=== PATIENT | female | born 1960 | race Caucasian/White ===

== ENCOUNTER 2016-12-10 15:11 | Inpatient (IN) | payer MEDICAID ==
[~2016-12-10] VITALS: Ht 152.4 cm; Wt 131.4 kg
[2016-12-10 16:54] LABS: BASOPHILS 0.1 % (0-2); EOSINOPHILS 0 % (0-7); HEMATOCRIT 43.3 % (36.0-48.0); HEMOGLOBIN 14.7 g/dL (12-16); IMMATURE GRANULOCYTES 0.4 % (0-5); LYMPHOCYTES 5.1 % (15-50); MCH 29.8 pg (26.0-34.0); MCHC 33.9 g/dL (31.0-37.0); MCV 87.8 fL (80.0-100.0); MEAN PLATELET VOLUME 10.4 fL (7.4-10.4); MONOCYTES 2.2 % (2-11); NEUTROPHILS 92.2 % (40-80); RBC 4.93 10x6/uL (4.00-5.40); RDW 15.1 % (11.5-14.5); WBC 18.7 10x3/uL (4.8-10.8)
[2016-12-10 16:55] LABS: PLATELET COUNT 236 10x3/uL (130-400)
[2016-12-10 17:12] LABS: ALBUMIN 3.5 g/dL (3.4-5.0); BILIRUBIN - TOTAL 0.75 mg/dL (0.2-1.3); CALCIUM 9.9 mg/dL (8.5-10.1); CARBON DIOXIDE 36.7 mmol/L (21.0-32.0); CREATININE - SERUM 1.4 mg/dL (0.6-1.3); PROTEIN - SERUM 8.3 g/dL (6.4-8.2)
[2016-12-10 17:19] LABS: ANION GAP 9.7 mmol/L (8-16); POTASSIUM - SERUM 2.4 mmol/L (3.5-5.1)
[2016-12-10 17:46] LABS: PRO BNP 5389 pg/mL (0-125)
[2016-12-10 18:01] LABS: APPEARANCE HAZY (CLEAR); BILIRUBIN NEGATIVE (NEGATIVE); COLOR YELLOW (YELLOW); GLUCOSE NEGATIVE (NEGATIVE); KETONE NEGATIVE (NEGATIVE); LEUKOCYTE ESTERASE 2+ (NEGATIVE); NITRITE POSITIVE (NEGATIVE); PROTEIN NEGATIVE (NEGATIVE); SPECIFIC GRAVITY 1.015 (1.005-1.020); UROBILINOGEN NORMAL (NORMAL)
[2016-12-10 18:02] LABS: BACTERIA MANY /hpf (NONE SEEN); EPITHELIAL CELLS 0-5 /hpf (0-5); WHITE CELLS - URINE >50 /hpf (0-5)
[2016-12-10 18:08] LABS: KETONE - SERUM NEGATIVE (NEGATIVE)
[2016-12-10 19:00] VITALS: BP 154/76
[2016-12-10] MEDS ORDERED: PLAVIX75 MG PO (20:49)
[2016-12-10] MEDS ORDERED: HYDROCODONE-APA1 TAB PO (20:49)
[2016-12-10] MEDS ORDERED: MAG-OX 400 MG400 MG PO (20:50)
[2016-12-10] MEDS ORDERED: NORTRIPTYLINE H50 MG PO (20:50)
[2016-12-10] MEDS ORDERED: CATAPRES0.2 MG PO (20:50)
[2016-12-10] MEDS ORDERED: ALDACTONE25 MG PO (20:51)
[2016-12-10] MEDS ORDERED: METOLAZONE5 MG PO (20:51)
[2016-12-10] MEDS ORDERED: SYNTHROID300 MCG PO (20:51)
[2016-12-10] MEDS ORDERED: POTASSIUM CHLORIDE (20:52)
[2016-12-10] MEDS ORDERED: ISOSORBIDE MONO20 MG PO (20:52)
[2016-12-10] MEDS ORDERED: [UNRECOGNIZED DRUG - OTHER] (20:52)
[2016-12-10] MEDS ORDERED: BUMEX2 MG PO (20:52)
[2016-12-10] MEDS ORDERED: HUMULIN R100 U/ML SC (20:53)
[2016-12-10] MEDS ORDERED: HUMULIN N100 U/ML SC ×2 (20:54)
[2016-12-10] MEDS ORDERED: NORVASC5 MG PO (20:55)
--- NOTE | 2016-12-10 22:28 | NUR ---
PT RECEIVED TO FLOOR @ APPROX 20:30-20:45 VIA STRETCHER FROM ER. PT DEMONSTRATES EXTREME WEAKNESS AND LETHARGY, BUT IS ALERT AND ORIENTED AT THIS TIME. FAMILY BROUGHT PT FROM [place], C/O INCREASED CONFUSION, WEAKNESS, AND LLE REDNESS, PAIN, AND POSSIBLY INFECTED. PT DID EAT HALF A TURKEY SANDWICH IN THE ER, BUT FAMILY STATES PT HAS NOT ACTUALLY EATEN IN THE LAST 1 1/2-2 DAYS. PT TRANSFERRED FROM STRETCHER TO BED X 5 ASSIST. MEDS HAVE BEEN REVIEWED WITH FAMILY, WILL MONITOR CLOSELY.
--- NOTE | 2016-12-11 01:47 | NUR ---
PT LYING IN BED, EYES CLOSED, RESPIRATIONS EVEN AND UNLABORED. PT ROUSABLE TO VERBAL STIMULI, FAMILY AT BEDSIDE. CONTINUE TO MONITOR CLOSELY.
[2016-12-11 03:32] VITALS: BP 151/76; BMI 65.9
[2016-12-11 04:00] VITALS: BP 156/70
--- NOTE | 2016-12-11 05:24 | NUR ---
PT BATHED, LINENS CHANGED, GOWN CHANGED, TOTAL ASSIST AT THIS TIME. PT IS WANTING TO DANGLE HER LEGS FOR PAIN RELIEF. I DID TEACHING TO PT AND THAT DANGLING OR STAYING IN THE DEPENDENT POSITION CAUSES INCREASED SWELLING, HAVE ENCOURAGED PT TO REMAIN IN BED WITH LEGS AND FEET ELEVATED. CONTINUE TO MONITOR CLOSELY.
[2016-12-11 06:45] LABS: BASOPHILS 0.1 % (0-2); EOSINOPHILS 0 % (0-7); HEMATOCRIT 36.3 % (36.0-48.0); HEMOGLOBIN 12.2 g/dL (12-16); IMMATURE GRANULOCYTES 0.3 % (0-5); LYMPHOCYTES 9.3 % (15-50); MCH 29.7 pg (26.0-34.0); MCHC 33.6 g/dL (31.0-37.0); MCV 88.3 fL (80.0-100.0); MEAN PLATELET VOLUME 10.3 fL (7.4-10.4); MONOCYTES 3.3 % (2-11); RBC 4.11 10x6/uL (4.00-5.40); RDW 15.1 % (11.5-14.5); WBC 15.7 10x3/uL (4.8-10.8)
[2016-12-11 06:47] LABS: PLATELET COUNT 187 10x3/uL (130-400)
[2016-12-11 06:55] LABS: ANION GAP 5.8 mmol/L (8-16); CALCIUM 8.9 mg/dL (8.5-10.1); CARBON DIOXIDE 36.8 mmol/L (21.0-32.0)
[2016-12-11 06:59] LABS: POTASSIUM - SERUM 2.6 mmol/L (3.5-5.1)
[2016-12-11 08:00] VITALS: BP 163/77
--- NOTE | 2016-12-11 08:09 | NUR ---
AM ROUNDING DONE WITH LEFT LOWER LEG SEEN VERY RED, SWOLLEN AND SOME HEALING SCABS SEEN. RIGHT LEG UNDERNEATH COVERS, WILL CHECK THIS WITH FULL ASSESSMENT. MALE MEMBER AT [facility]. ON HEART MONITOR SHOWING SR, HR 86. ON 2L PER NC. RIGHT AC SEEN WITH NS W 20K INFUSING AT 75 CC/HR.
--- NOTE | 2016-12-11 11:20 | NUR ---
PLACED IN TEMPORARY CONTACT ISOLATION TO R/O STAPH TO LEG. THIS IS EXPLAINED TO PATIENT.
[2016-12-11 12:00] VITALS: BP 146/74
--- NOTE | 2016-12-11 15:02 | NUR ---
PER DR KIM FOR ME TO CALL TO CLARIFY INSULIN DOSE AT HOME. I CALLED CAIN AT [phone] AND HE STATES THAT HE GIVES HER: 220 U OF NOVOLIN EVERY MORNING 110 U OF NOVOLIN AT BEDTIME 25 U OF HUMULIN R BEFORE EACH MEAL. I REPEATED THIS TO HIM SEVERAL TIMES BACK AND HE STATES THAT THIS IS CORRECT.
[2016-12-11 15:03] VITALS: Ht 152.4 cm; Wt 131.4 kg
--- NOTE | 2016-12-11 15:13 | NUR ---
PATIENT HAD AN INCONT. EPISODE OF URINE AND THEN USED THE BEDPAN PAST CLEANING HER UP.
[2016-12-11 16:00] VITALS: BP 162/77
--- NOTE | 2016-12-11 17:35 | NUR ---
ASSISTED X 2 BACK TO BED. US DOPPLE OF LEG DONE.
[2016-12-11 20:00] VITALS: BP 141/91
[2016-12-12 04:00] VITALS: BP 144/78
--- NOTE | 2016-12-12 07:35 | NUR ---
AM ROUNDING DONE WITH PATIENT UP IN CHAIR THIS AM. MALE MEBER AT BEDSIDE. ON 2L PER NC. RIGHT AC SEEN WITH NS INFUSING AT 10 CC/HR. ON HEART MONITOR SHOWING SR, HR 83. LEFT LOWER LEG STILL VERY RED WITH BLACK SCAB SEEN TO FULLER AREA. IN CONTACT ISLOLATION. WILL ASSESS FOLDS AND BUTTOCK WHEN OUT OF CHAIR.
[2016-12-12 08:09] VITALS: BP 122/70
[2016-12-12 10:42] LABS: ANION GAP 5.4 mmol/L (8-16); CALCIUM 9.1 mg/dL (8.5-10.1); CARBON DIOXIDE 36.3 mmol/L (21.0-32.0); CREATININE - SERUM 1.1 mg/dL (0.6-1.3)
[2016-12-12 10:43] LABS: POTASSIUM - SERUM 2.7 mmol/L (3.5-5.1)
--- NOTE | 2016-12-12 10:49 | NUR ---
LAB TO CALL WITH CRITICAL POTASSIUM OF 2.7. PAGE INTO CASH WITH RENAL FOR NEW ORDERS.
--- NOTE | 2016-12-12 10:52 | NUR ---
JOSE CAROLINA RECEVIED FROM CASH WITH RENAL.
[2016-12-12 12:00] VITALS: BP 143/70
--- NOTE | 2016-12-12 16:59 | NUR ---
PATIENT STILL IN CHAIR. 16 U OF INSULIN GIVEN TO RIGHT ARM FOR BLOOD SUGAR OF 266. CLEANED UP FROM INCONT. OF URINE, CALMOSEPTINE APPLIED TO BUTTOCK. CALL LIGHT IN USE.
--- NOTE | 2016-12-12 19:47 | NUR ---
RECEIVED REPORT, WILL ASSUME CARE OF PT, PT SITTING IN CHAIR, DENIES ANY NEEDS, CALL LIGHT IN REACH, WILL CONTINUE TO MONITOR
[2016-12-12 20:00] VITALS: BP 133/64
--- NOTE | 2016-12-12 20:42 | NUR ---
BLOODSUGAR 129-NO COVERAGE PER SCALE
[2016-12-13 04:00] VITALS: BP 140/55
--- NOTE | 2016-12-13 04:09 | NUR ---
ASSESSMENT COMPLETE, SEE FLOESHEET, PT SLEEPING IN CHAIR, CALL LIGHT IN REACH, WILL CONTINUE PLAN OF CARE
[2016-12-13 04:56] LABS: BASOPHILS 0.2 % (0-2); EOSINOPHILS 0.8 % (0-7); HEMOGLOBIN 12.5 g/dL (12-16); IMMATURE GRANULOCYTES 0.5 % (0-5); LYMPHOCYTES 18.2 % (15-50); MCH 29.6 pg (26.0-34.0); MCHC 32.9 g/dL (31.0-37.0); MEAN PLATELET VOLUME 10.1 fL (7.4-10.4); MONOCYTES 5.5 % (2-11); NEUTROPHILS 74.8 % (40-80); RBC 4.22 10x6/uL (4.00-5.40); RDW 14.9 % (11.5-14.5); WBC 16.9 10x3/uL (4.8-10.8)
[2016-12-13 05:00] LABS: PLATELET COUNT 238 10x3/uL (130-400)
[2016-12-13 05:14] LABS: ANION GAP 9.9 mmol/L (8-16); CALCIUM 9.6 mg/dL (8.5-10.1); CARBON DIOXIDE 38.2 mmol/L (21.0-32.0); CREATININE - SERUM 1.2 mg/dL (0.6-1.3); POTASSIUM - SERUM 3.1 mmol/L (3.5-5.1)
--- NOTE | 2016-12-13 07:45 | NUR ---
INTRODUCED MYSELF TO PT PRIMARY RN FOR TODAYS SHIFT. PT RESTING QUIETLY IN BED WATCHING TV AND DENIES ANY CURRENT NEEDS AT THIS TIME. CL IN REACH. WILL CPOC.
[2016-12-13 08:40] VITALS: BP 149/65
--- NOTE | 2016-12-13 09:30 | NUR ---
MORNING MEDICATIONS PASSED AND PT SWALLOWED ALL HER MEDICATIONS WITHOUT ANY DIFFICULTIES. SHIFT ASSESSMENT COMPLETED. PT RESPONDS SLOWLY AND OFTEN STATES "I JUST DONT REMEMBER" HOWEVER PT IS ORIENTED TO PERSON, PLACE AND SITUATION. PT NEEDS AN IV AND WILL HAVE ONE PLACED SHORTLY. TELEMETRY IN PLACE AND RUNNING NORMAL SINUS. RR NONLABORED WITH NC @2L IN PLACE. RR SHALLOW. PTS ABDOMEN IS DISTENDED BUT SHE STATES ITS NORMAL FOR HER. BS ACTIVE X4. PT NEEDS A TEMPLE PLACED TEACHING PROVIDED AND PT DENIES ANY QUESTIONS. 16FR TEMPLE PLACED USING STERILE TECHNIQUE AND SECURED WITH STAT LOCK TO L.INNER THIGH DRAINING CLEAR YELLOW URINE TO GRAVITY BAG OFF L.SIDE OF BED. PTS L.LEG IS VERY SWOLLEN AND RED AND WARM TO THE TOUCH. ONE SCAB NOTED AND SKIN STILL INTACT. PERIPHERAL PULSE ARE PALP BUT WEAK. BILAT LEGS ARE DRY AND CRACKING SO I APPLIED LOTION TO BOTH. PT VOICED THANKS. PTS ABDOMINAL FOLDS AND GROIN FOLDS HOLD MOISTURE AND ARE RED. CLEANSED THOROUGHLY WITH SOAP AND WATER AND THEN DRIED. PT C/O OF IRRITATION/PAIN AT SITES BUT SKIN IS STILL INTACT. WILL PLACE PILLOW CASE AND TRY TO USE IT A BARRIER SO SHE CAN STAY DRY. PT DENIES ANY FURTHER NEEDS AT THIS TIME. CL IN REACH, BED IN LOWEST, SIDE RAILS X2 AND BUILT IN BED ALARM ON. WILL CPOC.
--- NOTE | 2016-12-13 10:45 | NUR ---
PROVIDED PT WITH HER ZOSYN INFUSING VIA L.HAND NEWLY PLACED PIV. DRSG CDI AND SWAB CAPS IN USE AND ALL TUBING NEW AND DATED/INITIALED. PT SITTING UP IN BED WITH FAMILY AT BEDSIDE RESTING QUIETLY. HELD PTS LOVENOX R/T CT SCAN SHOWING POSSIBLE ICH. NEURO HAS BEEN CONSULTED ALREADY. WILL CTM.
--- NOTE | 2016-12-13 11:15 | NUR ---
PT RESTING QUIELTY, FAMILY AT BEDSIDE. RR EVEN AND UNLABORED, PT DENIES NEEDS AT THIS TIME. BED IN LOWEST POSTION, CALL LIGHT IN REACH, WILL CTM.
--- NOTE | 2016-12-13 11:16 | NUR ---
FSBS 278. PT REC'D 16 UNITS PER SS INSULIN. PT SITTING UP IN BED WITH FAMILY AT BEDSIDE. CL IN REACH, BED IN LOWEST, SIDE RAILS X2. WILL CPOC.
--- NOTE | 2016-12-13 11:31 | NUR ---
BEDSIDE REPORT GIVEN TO RN ARUN FLANAGAN WHO WILL BE TAKING OVER CARE FOR THIS PT. PT RESTING AND DENIES ANY NEEDS AT THIS TIME.
[2016-12-13 12:39] VITALS: BP 150/71
--- NOTE | 2016-12-13 13:56 | NUR ---
Patient Name: BRIGIDA ROBBINS Admission Status: ER Accout number: [id number] Admission Date: 12-10-2016 : 1960 Admission Diagnosis: Attending: BRENNA Current LOS: 3 Anticipated DC Date: Planned Disposition: Home Health Service Primary Insurance: MEDICAID [place] Discharge Planning Comments: PATIENT MET WITH PATIENT (WHO IS CONFUSED), HER DAUGHTER ANTWON DIAZ, HER OTHER DAUGHTER REYNALDO KEENAN, AND HER SPOUSE CAIN ROBBINS. THEY STATED SHE WAS AT HOME, PRETTY MUCH INDEPENDENT WITH ADL'S, REQUIRING MINIMAL ASSISTANCE AT TIME. THEY WOULD LIKE FOR HER TO RETURN HOME WITH HER SPOUSE ON DISCHARGE. THEY FEEL THE HOME IS SAFE, BUT HAVE ASKED ABOUT HOME HEALTH. THEY STATED SHE HAS HAD THE HEALTH DEPARTMENT IN THE PAST,BUT DO NOT WANT TO USE THEM AGAIN. EXPLAINED I WOULD HAVE TO LOOK INTO THE CHOICES THEY HAVE IN THE [place] AREA. THE PATIENT HAS A ROLLING WALKER, BSC, AND CPAP MACHINE AT HOME. AT THIS TIME THEY ARE DENYING THE NEED FOR ANY ADDITIONAL EQUIPMENT. THE PATIENT DOES NOT WEAR OXYGEN AT HOME, BUT IS ON 3L N/C HERE. CM WILL MONITOR FOR NEED FOR WALK TEST PRIOR TO DISCHARGE. WILL CONTINUE TO FOLLOW AND ASSIST NEEDED. Beamer Operator: Lay Arce Is the patient Alert and Oriented? No * How many steps to enter\exit or inside your home? 0 * PCP DR WADE * Pharmacy [facility] * Preadmission Environment Home with Family * ADLs Independent * Equipment Bedside Commode CPAP Walker * List name and contact numbers for known caregivers / representatives who currently or will assist patient after discharge: CAIN ROBBINS, SPOUSE, REYNALDO DURANMARÍA, DTR, * Additional services required to return to the preadmission environment? Yes * Can the patient safely return to the preadmission environment? Yes * Has this patient been hospitalized within the prior 30 days at any hospital? No
[2016-12-13 16:51] VITALS: BP 153/63
[2016-12-13 19:00] VITALS: BP 154/66
--- NOTE | 2016-12-13 20:31 | NUR ---
PT LYING IN BED, AWAKE, ALERT, DEMONSTRATES WEAKNESS AND STUPOR. PT IS EASILY ROUSABLE TO VERBAL STIMULI, HOWEVER FALLS BACK TO SLEEP IMMEDIATELY AFTER BEING AWAKENED. PT C/O HEADACHE IN THE FRONTAL LOBE, DENIES ANY OTHER NEEDS AT AT THIS TIME. PT WAS ABLE TO TAKE HER PO MEDICATIONS WITHOUT ANY DIFFICULTY. CONTINUE TO MONITOR CLOSELY. BED LOW, CALL LIGHT IN REACH, SIDE RAILS X 2, HOB 40 DEGREES.
[2016-12-14] VITALS: BP 148/67
--- NOTE | 2016-12-14 03:57 | NUR ---
PT REQUESTED TO TRANSFER TO RECLINER R/T HER LEG PAIN. PT WAS ASSISTED X 2 TO BEDSIDE RECLINER WITH MAX ASSIST. PT RESTING COMFORTABLY AT THIS TIME. BED/LINENS CHANGED. CONTINUE TO MONITOR CLOSELY.
[2016-12-14 04:00] VITALS: BP 144/72
[2016-12-14 05:42] LABS: BASOPHILS 0.2 % (0-2); EOSINOPHILS 1.2 % (0-7); HEMATOCRIT 37.7 % (36.0-48.0); HEMOGLOBIN 12.4 g/dL (12-16); IMMATURE GRANULOCYTES 1.2 % (0-5); LYMPHOCYTES 15.7 % (15-50); MCH 29.2 pg (26.0-34.0); MCHC 32.9 g/dL (31.0-37.0); MCV 88.9 fL (80.0-100.0); MEAN PLATELET VOLUME 10.3 fL (7.4-10.4); MONOCYTES 5.6 % (2-11); NEUTROPHILS 76.1 % (40-80); RBC 4.24 10x6/uL (4.00-5.40); RDW 14.9 % (11.5-14.5); WBC 16.9 10x3/uL (4.8-10.8)
[2016-12-14 05:46] LABS: PLATELET COUNT 291 10x3/uL (130-400)
[2016-12-14 06:08] LABS: ALBUMIN 2.4 g/dL (3.4-5.0); ANION GAP 12.4 mmol/L (8-16); BILIRUBIN - TOTAL 1.1 mg/dL (0.2-1.3); CALCIUM 9.7 mg/dL (8.5-10.1); CARBON DIOXIDE 35.6 mmol/L (21.0-32.0); CREATININE - SERUM 1.1 mg/dL (0.6-1.3); MAGNESIUM - SERUM 1.9 mg/dL (1.8-2.4); PHOSPHOROUS 3.1 mg/dL (2.5-4.9); PROTEIN - SERUM 7.6 g/dL (6.4-8.2); VANCOMYCIN - RANDOM 36.5 ug/mL (10.0-20.0)
--- NOTE | 2016-12-14 07:05 | NUR ---
RECEIVED REPORT. ASSUMED CARE OF PATIENT. PATIENT SITTING UP TO CHAIR AT BEDSIDE. CALL LIGHT WITHIN REACH. FAMILY AT BEDSIDE. TEMPLE CATH PATENT. IV FLUIDS INFUSING AT KVO. VANC STOPPED AT THIS TIME DUE TO RANDOM RATE ELEVATED. NO DISTRESS. DENIES NEEDS.
[2016-12-14 08:23] VITALS: BP 133/73
--- NOTE | 2016-12-14 09:30 | NUR ---
Patient Name: BRIGIDA ROBBINS Encounter No: [id number] : 1960 Primary Insurance: MEDICAID [place] Anticipated DC Date: Planned Disposition: Home Health Service External Planned Provider: TO BE DETERMINED DCP follow-up note: CM MET WITH PT AND FAMILY IN ROOM, PROVIDED HOME HEALTH PROVIDER CHOICE AND LISTING FOR [place]. PT'S FAMILY REPORTS THEY WILL DISCUSS WITH OTHER FAMILY AND MAKE HOME HEALTH PROVIDER DECISION. PT STILL PLANS TO DISCHARGE HOME WITH HOME HEALTH. CM PROVIDED CM CONTACT INFORMATION. CM WILL MONITOR FOR NEED FOR WALK TEST PRIOR TO DISCHARGE AND WILL ARRANGE HOME HEALTH WITH PHYSICIAN AGREEMENT AND HOME HEALTH ORDERS. CM TO CONTINUE TO FOLLOW AND ASSIST NEEDED. Alfredo Reina, CASE MANAGEMENT
[2016-12-14 12:40] VITALS: BP 132/78
--- NOTE | 2016-12-14 12:56 | NUR ---
FAMILY REQUESTED PASSCODE BE PLACED ON PATIENTS CHART SO THEY CAN CALL AND CHECK ON HER. PASSCODE [id number] ESTABLISHED FOR PATIENT AT THIS TIME. WILL PASS ON TO ONCOMING NURSE AT SHIFT CHANGE [facility].
--- NOTE | 2016-12-14 14:46 | NUR ---
SPOKE TO AND RECEIVED NEW ORDERS TO CHANGE VANC TO EVERY 18 HOURS, CANCEL THE PEAK AT 1600 AND REORDER PEAK AT 2014. TORRES NOTIFIED IN PHARMACY TO CHANGE TIME OF VANC.
[2016-12-14 16:15] VITALS: BP 161/72
--- NOTE | 2016-12-14 17:04 | NUR ---
FSBS 259. 16 UNITS HUMULIN REGULAR INSULIN ADMINISTERED PER SLIDING SCALE.
[2016-12-14 19:00] VITALS: BP 159/99
--- NOTE | 2016-12-14 20:27 | NUR ---
PT SITTING IN RECLINER, REQUESTING TO RETURN TO BED. PTS DAUGHTERS CALLED FROM [place] TO GET AN UPDATE, WILL BE BACK THIS WEEKEND. PT DENIES ANY NEEDS. CONTINUE TO MONITOR CLOSELY.
--- NOTE | 2016-12-14 20:56 | NUR ---
PT BACK IN BED, STATES SHE IS VERY UNCOMFORTABLE IN THE BED, AND ASKS TO BE SAT UP BRIEFLY. PT STATES THERE IS NO RELIEF REGARDLESS WHICH POSITION SHE IS IN. PRN NORCO GIVEN, CONTINUE TO MONITOR CLOSELY. BED LOW, CALL LIGHT IN REACH, SIDE RAILS X 2, HOB 40 DEGREES.
--- NOTE | 2016-12-14 23:08 | NUR ---
PT CONTINUES TO C/O OF GREAT DISCOMFORT WITH BED MATTRESS, UNABLE TO GET COMFORTABLY ENOUGH TO REST. I PLACED AN EGG CRATE OVER LAY IN HOPES THAT WOULD HELP PT BE ABLE TO REST. PT STATES IT DOES NOT. WILL CONTINUE TO PROVIDE COMFORT MEASURES AND SUPPORTIVE CARE WHEN POSSIBLE. CONTINUE TO MONITOR CLOSELY.
[2016-12-15] VITALS: BP 135/73
--- NOTE | 2016-12-15 02:43 | NUR ---
PT LYING IN BED, AWAKE, ALERT, IN NO ACUTE DISTRESS, STATES THE OVER LAY MATTRESS DOES NOT HELP BUT THAT SHE IS "ALRIGHT" FOR NOW. DENIES ANY NEEDS. CONTINUE TO MONITOR CLOSELY.
[2016-12-15 04:00] VITALS: BP 147/61
[2016-12-15 05:37] LABS: BASOPHILS 0.3 % (0-2); EOSINOPHILS 2.2 % (0-7); HEMOGLOBIN 13.1 g/dL (12-16); IMMATURE GRANULOCYTES 1.7 % (0-5); LYMPHOCYTES 22.5 % (15-50); MCH 29.2 pg (26.0-34.0); MCHC 32.8 g/dL (31.0-37.0); MCV 89.3 fL (80.0-100.0); MONOCYTES 5.9 % (2-11); NEUTROPHILS 67.4 % (40-80); PLATELET COUNT 344 10x3/uL (130-400); RBC 4.48 10x6/uL (4.00-5.40); RDW 14.8 % (11.5-14.5); WBC 14.9 10x3/uL (4.8-10.8)
--- NOTE | 2016-12-15 05:51 | NUR ---
PT UP IN CHAIR, HAVING GREAT PAIN ESPECIALLY IN HER LOWER BACK. PT STATES THAT SHE GETS MINOR RELIEF WHEN SITTING UP AND IN THE DEPENDENT POSITION, HOWEVER I HAVE EXPLAINED MANY TIMES THAT SHE CANNOT DO THIS FOR LONG, HER FEET TURN PURPLE AND SWELL EVEN WORSE THAN THEY ARE INITIALLY. PT HAS HAD A VERY BAD NIGHT WITH VERY POOR PAIN CONTROL. I HAVE ENCOURAGED PT TO SPEAK WITH HER PHYSICIAN ABOUT OTHER OPTIONS. PT DENIES ANY OTHER NEEDS. CONTINUE TO MONITOR CLOSELY.
[2016-12-15 05:56] LABS: ANION GAP 11.5 mmol/L (8-16); CALCIUM 9.8 mg/dL (8.5-10.1); CARBON DIOXIDE 37.7 mmol/L (21.0-32.0); CREATININE - SERUM 1.2 mg/dL (0.6-1.3); PHOSPHOROUS 3.4 mg/dL (2.5-4.9); POTASSIUM - SERUM 3.2 mmol/L (3.5-5.1); VANCOMYCIN - PEAK 26.1 ug/mL (18.0-26.0)
[2016-12-15 08:00] VITALS: BP 135/73
--- NOTE | 2016-12-15 08:31 | NUR ---
AM ROUNDS - PT IS SITTING IN CHAIR. TEMPLE DRAINING CLEAR YELLOW. PT HAS YELLOW BAND ON. IV TO LEFT HAND, NS AT KVO. O2 AT 2L VIA NC. PT IS CONTACT ISOLATION. MONITOR SHOWING SR WITH PAC, HR 87. BED AT LOWEST POSITION, CALL PATINO IN USE/REACH, SIDE RAILS UP X2. NO NEEDS AT THIS TIME. WILL CONTINUE TO MONITOR
[2016-12-15 12:00] VITALS: BP 111/60
[2016-12-15 16:00] VITALS: BP 134/70
[2016-12-15 19:00] VITALS: BP 133/69
[2016-12-16] VITALS: BP 129/83
[2016-12-16 04:34] VITALS: BP 185/88
[2016-12-16 05:59] LABS: BASOPHILS 0.3 % (0-2); HEMATOCRIT 36.5 % (36.0-48.0); HEMOGLOBIN 11.9 g/dL (12-16); LYMPHOCYTES 20.3 % (15-50); MCHC 32.6 g/dL (31.0-37.0); MEAN PLATELET VOLUME 9.7 fL (7.4-10.4); MONOCYTES 5.4 % (2-11); PLATELET COUNT 361 10x3/uL (130-400); RDW 14.9 % (11.5-14.5); WBC 13.8 10x3/uL (4.8-10.8)
[2016-12-16 06:15] LABS: ANION GAP 10.3 mmol/L (8-16); CALCIUM 9.2 mg/dL (8.5-10.1); CARBON DIOXIDE 35.1 mmol/L (21.0-32.0); CREATININE - SERUM 1.1 mg/dL (0.6-1.3); PHOSPHOROUS 3.4 mg/dL (2.5-4.9); POTASSIUM - SERUM 3.4 mmol/L (3.5-5.1); VANCOMYCIN - RANDOM 7.3 ug/mL (10.0-20.0)
--- NOTE | 2016-12-16 07:51 | NUR ---
AM ROUNDING DONE WITH PATIENT ON HEART MONITOR SHOWING SR, HR 75. PATIENT IS UP IN CHAIR WITH LEGS ELEVATED. IN CONTACT ISOLATION. TEMPLE CATH SEEN WITH CLEAR YELLOW URINE. ON 2L PER NC.
[2016-12-16 08:19] VITALS: BP 166/75
--- NOTE | 2016-12-16 08:23 | NUR ---
CALLED [facility] FOR [facility].
--- NOTE | 2016-12-16 09:15 | NUR ---
STILL IN CHAIR, AM MEDS GIVEN. KPAD PLACED TO LEFT LOWER LEG ORDERED.
[2016-12-16 12:06] VITALS: BP 128/50
--- NOTE | 2016-12-16 13:30 | NUR ---
MELANI DIAZ-DAUGHTER TO CALL AND CHECK ON STATUS OF HER MOTHER. I ASKED MS. ROBBINS IF I COULD TALK TO HER AND WAS TOLD YES. MS. DIAZ STATES THAT A PASSCODE OF [id number] WAS GIVEN EARILER AND THIS IS PLACED INTO THE SYSTEM.
[2016-12-16 15:47] VITALS: BP 139/52
--- NOTE | 2016-12-16 17:11 | NUR ---
STILL SITTING IN CHAIR EATING SUPPER. DENIES ANY NEEDS AT PRESENT TIME. TEMPLE CATH PATENT WITH CLEAR YELLOW URINE.
[2016-12-16 21:00] VITALS: BP 156/60
[2016-12-17 00:32] VITALS: BP 144/71
[2016-12-17 04:05] VITALS: BP 180/78
[2016-12-17 05:14] LABS: BASOPHILS 0.5 % (0-2); EOSINOPHILS 1.9 % (0-7); HEMATOCRIT 36.7 % (36.0-48.0); IMMATURE GRANULOCYTES 2.1 % (0-5); LYMPHOCYTES 21.1 % (15-50); MCH 29.1 pg (26.0-34.0); MCHC 32.7 g/dL (31.0-37.0); MCV 88.9 fL (80.0-100.0); MONOCYTES 5.7 % (2-11); NEUTROPHILS 68.7 % (40-80); RBC 4.13 10x6/uL (4.00-5.40); RDW 14.7 % (11.5-14.5); WBC 15.5 10x3/uL (4.8-10.8)
[2016-12-17 05:19] LABS: PLATELET COUNT 437 10x3/uL (130-400)
[2016-12-17 05:52] LABS: ANION GAP 10.2 mmol/L (8-16); CALCIUM 9.7 mg/dL (8.5-10.1); CARBON DIOXIDE 35.4 mmol/L (21.0-32.0); CREATININE - SERUM 1.1 mg/dL (0.6-1.3); PHOSPHOROUS 3.6 mg/dL (2.5-4.9); POTASSIUM - SERUM 3.6 mmol/L (3.5-5.1); VANCOMYCIN - RANDOM 8.7 ug/mL (10.0-20.0)
--- NOTE | 2016-12-17 07:25 | NUR ---
AM ROUNDING DONE WITH PATIENT IN CHAIR AT THIS TIME. IN CONTACT ISOLATION. KPAD SEEN TO LEFT LOWER LEG. NS INFUSING TO RIGHT FA AT KVO STATUS WITHOUT PROBLEMS. ON HEART MONITOR SHOWING SR, HR 73. TEMPLE CATH PATENT WITH YELLOW URINE. WILL MONITOR.
[2016-12-17 08:18] VITALS: BP 134/69
[2016-12-17 11:44] VITALS: BP 103/55
--- NOTE | 2016-12-17 13:53 | NUR ---
Nutrition follow-up: Diet: ADA consistent CHO PO intake ~75-100% of meals Labs reviewed Wt: 408# RDN following.
[2016-12-17 15:28] VITALS: BP 166/82
--- NOTE | 2016-12-17 18:25 | NUR ---
PATIENT HAS BEEN UP IN THE CHAIR SINCE AM ROUNDING. DOES NOT WANT TO GO BACK TO BED AT THIS TIME.
[2016-12-17 19:00] VITALS: BP 140/79
--- NOTE | 2016-12-17 19:52 | NUR ---
PATIENT RESTING IN BED WITH NO VISIBLE SIGNS OF DISTRESS. BED IN LOWEST POSITION AND CALL LIGHT WITHIN REACH. PATIENT DENIES NEEDS AT THIS TIME. ENCOURAGED THE PATIENT TO CALL IF SHE HAS NEEDS.
[2016-12-18] VITALS: BP 121/80
[2016-12-18 04:00] VITALS: BP 157/91
[2016-12-18 05:48] LABS: BASOPHILS 0.2 % (0-2); EOSINOPHILS 2.1 % (0-7); HEMATOCRIT 38.2 % (36.0-48.0); HEMOGLOBIN 12.5 g/dL (12-16); IMMATURE GRANULOCYTES 2.6 % (0-5); LYMPHOCYTES 18.8 % (15-50); MCH 28.7 pg (26.0-34.0); MCHC 32.7 g/dL (31.0-37.0); MCV 87.6 fL (80.0-100.0); MEAN PLATELET VOLUME 9.6 fL (7.4-10.4); MONOCYTES 5.6 % (2-11); NEUTROPHILS 70.7 % (40-80); PLATELET COUNT 420 10x3/uL (130-400); RBC 4.36 10x6/uL (4.00-5.40); RDW 14.6 % (11.5-14.5); WBC 16.4 10x3/uL (4.8-10.8)
[2016-12-18 06:07] LABS: ANION GAP 14.7 mmol/L (8-16); CALCIUM 9.3 mg/dL (8.5-10.1); CARBON DIOXIDE 29.1 mmol/L (21.0-32.0); PHOSPHOROUS 3.9 mg/dL (2.5-4.9); POTASSIUM - SERUM 3.8 mmol/L (3.5-5.1)
--- NOTE | 2016-12-18 07:00 | NUR ---
RECEIVED REPORT. ASSUMED CARE OF PATIENT. CALL LIGHT WITHIN REACH. PATIENT SITTING TO CHAIR AT BEDSIDE. LEGS ELEVATED AND KPAD PLACED TO LEFT LOWER EXTREMITY. DENIES NEEDS. NO DISTRESS.
[2016-12-18 08:31] VITALS: BP 144/79
--- NOTE | 2016-12-18 12:11 | NUR ---
FSBS 243. 12 UNITS HUMULIN ADMINISTERED PER SLIDING SCALE. PATIENT CONSUMING NOON MEAL AT THIS TIME. PATIENT ALSO MEDICATED FOR PAIN AT THIS TIME. FAMILY AT BEDSIDE. NO DISTRESS. CALL LIGHT WITHIN REACH.
[2016-12-18 12:33] VITALS: BP 121/64
--- NOTE | 2016-12-18 15:34 | NUR ---
NEW TELEMETRY PADS APPLIED AT THIS TIME. CALL LIGHT WITHIN REACH. DENIES NEEDS. FAMILY AT BEDSIDE.
[2016-12-18 16:30] VITALS: BP 120/70
--- NOTE | 2016-12-18 16:43 | NUR ---
FSBS 290. 16 UNITS HUMULIN INSULIN ADMINISTERED PER SLIDING SCALE. NO DISTRESS. CONSUMING PM MEAL AT THIS TIME.
--- NOTE | 2016-12-18 19:15 | NUR ---
ALERT/AWAKE WATCHING TV. IN CONTACT ISOLATION FOR MRSA. IV IN R FA INTACT SL. O2 AT 2L/NC. HAS KPAD ON LOWER LEGS. REQUESTED CUP OF ICE/SODA. FAMILY MEMBER PRESENT IN ROOM.
[2016-12-18 20:00] VITALS: BP 119/77
--- NOTE | 2016-12-18 22:20 | NUR ---
ADMIN TRAMADOL 50MG PO PER REQUEST FOR C/O LEG PAIN. ADMIN SCHED MEDS AND 12 UNITS HUMULIN R FOR BS 237. REQUESTED DOOR CLOSED AND LIGHTS OFF TO SLEEP.
[2016-12-19 04:00] VITALS: BP 140/70
--- NOTE | 2016-12-19 04:07 | NUR ---
PULLED IV OUT GETTING OUT OF BED TO CHAIR. RESITED IN RT HAND WITH 20G. WANTS TO STAY IN RECLINER TO READ BOOK.
[2016-12-19 06:08] LABS: BASOPHILS 0.3 % (0-2); EOSINOPHILS 2.3 % (0-7); HEMATOCRIT 37.6 % (36.0-48.0); HEMOGLOBIN 12.3 g/dL (12-16); LYMPHOCYTES 16.7 % (15-50); MCHC 32.7 g/dL (31.0-37.0); MCV 88.7 fL (80.0-100.0); MEAN PLATELET VOLUME 9.9 fL (7.4-10.4); MONOCYTES 5.5 % (2-11); NEUTROPHILS 73.2 % (40-80); PLATELET COUNT 472 10x3/uL (130-400); RBC 4.24 10x6/uL (4.00-5.40); RDW 14.7 % (11.5-14.5); WBC 16.4 10x3/uL (4.8-10.8)
[2016-12-19 06:29] LABS: ANION GAP 13.5 mmol/L (8-16); CALCIUM 9.6 mg/dL (8.5-10.1); CREATININE - SERUM 1.2 mg/dL (0.6-1.3); PHOSPHOROUS 3.2 mg/dL (2.5-4.9); POTASSIUM - SERUM 3.5 mmol/L (3.5-5.1)
--- NOTE | 2016-12-19 07:00 | NUR ---
RECEIVED REPORT. ASSUMED CARE OF PATIENT. CALL LIGHT WIHTIN REACH. SITTING TO CHAIR AT BEDSIDE. DENIES NEEDS AT THIS TIME. KPAD TO LEFT LOWER LEG. NO DISTRESS.
[2016-12-19 08:00] VITALS: BP 167/67
--- NOTE | 2016-12-19 10:38 | NUR ---
MEDICATED FOR PAIN AT THIS TIME. NO DISTRESS.
[2016-12-19 11:31] VITALS: BP 142/68
--- NOTE | 2016-12-19 11:51 | NUR ---
PATIENT NOTED TO HAVE A RASH TO LOWER EXTREMITIES EXTENDING UP TO KNEES AFTER RECEIVING VANCOMYCIN. DIMPLING MACHINE OPERATOR PAGED.
--- NOTE | 2016-12-19 11:51 | NUR ---
FSBS 260. 16 UNITS HUMULIN ADMINISTERED PER SLIDING SCALE.
--- NOTE | 2016-12-19 12:27 | NUR ---
MEDICATED WITH BENADRYL AT THIS TIME AFTER RECEIVING NEW ORDER FROM [facility] FOR RASH TO LOWER LEGS AFTER RECEIVING VANCOMYCIN. FAMILY AT BEDSIDE.
[2016-12-19 15:12] VITALS: BP 136/66
--- NOTE | 2016-12-19 17:06 | NUR ---
FSBS 263. 16 UNITS HUMULIN INSULIN ADMINISTERED PER SLIDING SCALE. SITTING IN CHAIR AT BEDSIDE CONSUMING PM MEAL. COMPLETE BED LINEN CHANGED AT THIS TIME. NO DISTRESS.
--- NOTE | 2016-12-19 18:31 | NUR ---
PATIENT SITTING IN CHAIR AT BEDSIDE. CALL LIGHT WITHIN REACH. PATIENT WITH EYES CLOSED, EASILY AROUSED. FAMILY AT BEDSIDE. NO DISTRESS.
--- NOTE | 2016-12-19 19:53 | NUR ---
RESUMED CARE OF PT, UP IN CHAIR RESPIRATIONS EVEN AND UNLABORED ON ROOM AIR. 81 SR ON TELEMETRY. RIGHT HAND SALINE LOCKED. NO NEEDS VOICED AT THIS TIME. CALL LIGHT IN REACH. SEE NURSE ASSESSMENT. WILL CONTINUE TO MONITOR.
[2016-12-19 22:00] VITALS: BP 155/59
[2016-12-20] VITALS: BP 130/64
--- NOTE | 2016-12-20 | NUR ---
NYSTATIN APPLIED UNDER PT BREAST UNDER STOMACH ROLL AND IN AXILLARY. AREA DENUDED. OOZING A WHITISH CURD SUBSTANCE. DENUDED AREA IS VISIBLE WITHOUT LIFTING BREAST. WILL CONTINUE TO MONITOR AREA
[2016-12-20 04:39] LABS: BASOPHILS 0.2 % (0-2); EOSINOPHILS 2.8 % (0-7); HEMATOCRIT 35.7 % (36.0-48.0); HEMOGLOBIN 11.6 g/dL (12-16); IMMATURE GRANULOCYTES 1.4 % (0-5); LYMPHOCYTES 18.2 % (15-50); MCH 28.9 pg (26.0-34.0); MCHC 32.5 g/dL (31.0-37.0); MCV 88.8 fL (80.0-100.0); MEAN PLATELET VOLUME 9.6 fL (7.4-10.4); MONOCYTES 6.5 % (2-11); NEUTROPHILS 70.9 % (40-80); PLATELET COUNT 458 10x3/uL (130-400); RBC 4.02 10x6/uL (4.00-5.40); RDW 14.6 % (11.5-14.5); WBC 13.4 10x3/uL (4.8-10.8)
[2016-12-20 04:57] LABS: ANION GAP 11.1 mmol/L (8-16); CALCIUM 8.9 mg/dL (8.5-10.1); CARBON DIOXIDE 31.3 mmol/L (21.0-32.0); CREATININE - SERUM 1.3 mg/dL (0.6-1.3); MAGNESIUM - SERUM 1.8 mg/dL (1.8-2.4); POTASSIUM - SERUM 3.4 mmol/L (3.5-5.1)
[2016-12-20 05:03] VITALS: BP 138/77
[2016-12-20 08:00] VITALS: BP 144/106
--- NOTE | 2016-12-20 11:15 | NUR ---
Patient Name: BRIGIDA ROBBINS Encounter No: [id number] : 1960 Primary Insurance: MEDICAID [facility] [place] Date: Planned Disposition: Home Health Service External Planned Provider: TO BE DETERMINED BY FAMILY CHOICE DCP follow-up note: CM RECEIVED ORDER FOR LTACH OR REHAB PLACEMENT FOR CHILD ADVOCATE IV ANTIBIOTIC ADMINISTRATION. CM MET WITH PT AND FAMILY (SON AND DAUGHTER) IN ROOM TO DISCUSS ORDER AND OPTIONS. FAMILY IS NOT IN AGREEMENT WITH SNF FACILITY PLACEMENT; PT'S MEDICAID WILL NOT COVER INPATIENT REHAB, REHAB SERVICES IN SNF FACILITY OR LTACH SERVICES. PT'S SON REPORTS HE WOULD LIKE TO TRY HOME IV ANTIBIOTICS HE HAS DONE THIS BEFORE AT HOME WITH HIS MOTHER. PT'S SON REPORTS HE IS HOME AND CARES FOR HIS MOTHER ALL THE TIME. FAMILY WOULD LIKE CM TO FIND OUT HOW MUCH IT WOULD COSTS FOR HOME IV MEDICATIONS AND IF IT WOULD TAKE THE ENTIRE MEDICAID MEDICATION SLOT FOR THE MONTH OR JUST FOR THE TIME IT WAS BEING USED. CM PAGED AND NOTIFED RENAL NURSE ADI, [phone], TO INFORM HER OF PT CHOICE CM TO FOLLOW UP WITH HOME INFUSION COMPANY WHEN RECEIVE INFORMATION REGARDING IV ABX NAME, DOSE, RATE AND DURATION IN ORDER FOR CM TO [facility] MEDICATION FOR HOME HEALTH / HOME INFUSION IF DOCTOR IS AGREEABLE. Alfredo Reina, CASE MANAGEMENT
[2016-12-20 12:00] VITALS: BP 125/52
[2016-12-20 16:00] VITALS: BP 131/59
--- NOTE | 2016-12-20 18:17 | NUR ---
HAD EXTENDED CONVERSATION WITH PATIENT AND HER DAUGHTER REGARDING MANY QUESTIONS THAT THEY HAVE ABOUT HER MEDICAL CONDITION. ADVISED HER TO LIST QUESTIONS THAT SHE HAS FOR DR. WADE AND BE HERE 0600 IN THE MORNING TO REVIEW WITH HIM. SHE IS SPECIFICALLY CONCERNED ABOUT THE PATIENT'S CONFUSION, RASH AND PAIN MEDICATIONS.
--- NOTE | 2016-12-20 19:28 | NUR ---
PT SITTING UP IN CHAIR. REPOSITIONED. OFFERED TO LAY PT DOWN IN BED SHE DECLINED. PT DENIES ANY NEEDS. NO S/S OF DISTRESS. WILL CONTINUE TO MONITOR
[2016-12-20 23:00] VITALS: BP 140/66
[2016-12-21 01:51] VITALS: BP 135/56
--- NOTE | 2016-12-21 02:17 | NUR ---
PT C/O BACK HURTING DOWN SPINE 12/20. STATES THAT IT ITCHES AND REALLY HURTS. I RUBBED SOME LOTION ON IT. IT HAS SEVERAL BLISTERS AND SCABS ON IT. FROM THE TOP OF SPINE TO LOWER SPINE ALL OVER BACK. REPOSITONED PT AND GIVE ICE PACK NO S/S OF DISTRESS. WILL CONTINUE TO MONITOR
--- NOTE | 2016-12-21 04:17 | NUR ---
PT UP TO BSC X1 ASSIST. MODERATE AMOUNT SOFT BM. PT STILL IN CHAIR. DECLINES GETTING IN BED. PT WILL CALL WHEN WANTS TO REPOSITON OR GET INTO BED. WILL CONTINUE TO MONITOR
[2016-12-21 05:36] VITALS: BP 148/74
--- NOTE | 2016-12-21 05:39 | NUR ---
PT STILL SITTING IN CHAIR. WATCHING T.V. PT STILL DECLINES TO LAY DOWN. PT DENIES ANY NEEDS AT THIS TIME WILL CONTINUE TO MONITOR
[2016-12-21 06:08] LABS: BASOPHILS 0.3 % (0-2); EOSINOPHILS 2.9 % (0-7); HEMATOCRIT 38.3 % (36.0-48.0); HEMOGLOBIN 12.5 g/dL (12-16); LYMPHOCYTES 23.5 % (15-50); MCH 28.9 pg (26.0-34.0); MCHC 32.6 g/dL (31.0-37.0); MCV 88.5 fL (80.0-100.0); MEAN PLATELET VOLUME 9.9 fL (7.4-10.4); NEUTROPHILS 66.3 % (40-80); PLATELET COUNT 513 10x3/uL (130-400); RBC 4.33 10x6/uL (4.00-5.40); RDW 14.9 % (11.5-14.5); WBC 14.5 10x3/uL (4.8-10.8)
[2016-12-21 06:19] LABS: ANION GAP 13.9 mmol/L (8-16); CARBON DIOXIDE 30.2 mmol/L (21.0-32.0); CREATININE - SERUM 1.4 mg/dL (0.6-1.3); MAGNESIUM - SERUM 1.9 mg/dL (1.8-2.4); PHOSPHOROUS 3.8 mg/dL (2.5-4.9)
[2016-12-21 06:22] LABS: POTASSIUM - SERUM 4.1 mmol/L (3.5-5.1)
--- NOTE | 2016-12-21 07:20 | NUR ---
RECEIVED REPORT. ASSUMED CARE OF PATIENT. SITTING UP TO CHAIR AT BEDSIDE. PATIENT CONTINUES WITH RASH THAT IS SPREADING TO BACK OF NECK AND SCALP. DAUGHTER AT BEDSIDE. PATIENT IS ALERT/ORIENTED. RESP EVEN AND UNLABORED. NO DISTRESS. CALL LIGHT WITH IN REACH.
[2016-12-21 08:00] VITALS: BP 155/69
--- NOTE | 2016-12-21 09:58 | NUR ---
MEDICATED FOR PAIN AT THIS TIME. SITTING TO CHAIR AT BEDSIDE. NO DISTRESS. KPAD APPLIED TO LEFT LOWER EXT.
[2016-12-21 12:03] VITALS: BP 139/76
--- NOTE | 2016-12-21 12:05 | NUR ---
MEDICATED FOR ITCHING AT THIS TIME. FSBS 239. 12 UNITS HUMULIN INSULIN ADMINISTERED PER SLIDING SCALE. NO DISTRESS. SITTING UP IN CHAIR AT BEDSIDE CONSUMING NOON MEAL.
[2016-12-21 16:00] VITALS: BP 141/57
--- NOTE | 2016-12-21 18:36 | NUR ---
PATIENT REMOVED FROM ISOLATION AT THIS TIME PER . PATIENT SITTING UP IN CHAIR AT BEDSIDE. CALL LIGHT WITHIN REACH. NO DISTRESS.
--- NOTE | 2016-12-21 19:25 | NUR ---
PT SITTING IN BED HOB 75. PT DENIES ANY NEEDS AT THIS TIME. CALL LIGHT WITHIN REACH. WATER WITHIN REACH. NO S/S OF DISTRESS WILL CONTINUE TO MONITOR
[2016-12-21 21:01] VITALS: BP 110/65
[2016-12-21 23:55] LABS: APPEARANCE CLEAR (CLEAR); BILIRUBIN NEGATIVE (NEGATIVE); COLOR YELLOW (YELLOW); GLUCOSE NEGATIVE (NEGATIVE); KETONE NEGATIVE (NEGATIVE); LEUKOCYTE ESTERASE NEGATIVE (NEGATIVE); NITRITE NEGATIVE (NEGATIVE); PROTEIN TRACE mg/dL (NEGATIVE); UROBILINOGEN NORMAL (NORMAL)
[2016-12-22 01:04] VITALS: BP 136/65
--- NOTE | 2016-12-22 03:02 | NUR ---
PT SITTING IN CHAIR. PT HAS BEEN MOVING FROM BED TO CHAIR ALL NIGHT. PT CAN NOT GET COMFORTABLE. PT DENIES ANY NEEDS AT THIS TIME. NO S/S OF DISTRESS. WILL CONTINUE TO MONITOR
[2016-12-22 04:18] VITALS: BP 148/76
[2016-12-22 06:02] LABS: BASOPHILS 0.5 % (0-2); HEMATOCRIT 38.3 % (36.0-48.0); HEMOGLOBIN 12.6 g/dL (12-16); LYMPHOCYTES 27.5 % (15-50); MCH 28.8 pg (26.0-34.0); MCHC 32.9 g/dL (31.0-37.0); MCV 87.6 fL (80.0-100.0); MEAN PLATELET VOLUME 9.6 fL (7.4-10.4); MONOCYTES 7.4 % (2-11); PLATELET COUNT 507 10x3/uL (130-400); RBC 4.37 10x6/uL (4.00-5.40)
--- NOTE | 2016-12-22 06:14 | NUR ---
PT SITTING UP IN CHAIR. PT STILL DID NOT SLEEP WELL, PT DENIES ANY NEEDS. RESPIRATIONS EVEN AND UNLABORED. NO S/S OF DISTRESS. CALLLIGHT WITHIN REACH. WATER WITHIN REACH . PT WILL CALL IF NEED ANYTHING, WILL CONTINUE TO MONITOR
[2016-12-22 06:29] LABS: ANION GAP 14.3 mmol/L (8-16); CARBON DIOXIDE 30.5 mmol/L (21.0-32.0); CREATININE - SERUM 1.4 mg/dL (0.6-1.3); POTASSIUM - SERUM 3.8 mmol/L (3.5-5.1)
[2016-12-22 08:00] VITALS: BP 126/70
--- NOTE | 2016-12-22 11:20 | NUR ---
OUT TO MRI - UNABLE TO GET FSBS AT THIS TIME
[2016-12-22 12:00] VITALS: BP 134/65
--- NOTE | 2016-12-22 15:08 | NUR ---
UP IN CHAIR WATCHING TV - DENIES ANY NEEDS
[2016-12-22 16:00] VITALS: BP 150/62
--- NOTE | 2016-12-22 18:22 | NUR ---
UP TO CHAIR WATCHING TV - DENIES ANY NEEDS
[2016-12-22 19:00] VITALS: BP 170/77
--- NOTE | 2016-12-22 19:30 | NUR ---
PT SITTING IN CHAIR. DENIES ANY NEEDS AT THIS TIME. PT HAS NO S/S OF DISTRESS. WILL CONTINUE TO MONITOR
--- NOTE | 2016-12-22 23:00 | NUR ---
TRANSFERED PT TO BED X1 ASSIST. WANTING PT TO LAY DOWN AND SLEEP SHE HAS NOT SLEPT BUT A FEW HOURS THE LAST 2 NIGHTS. MYCOSTATION CREAM AND POWDER APPLIED UNDER BOTH BREAST, UNDER STOMACH FOLD, AND BOTH AXILLARYS. AREA STILL HAS REDNESS AND SKIN PEELING. IT IS NOT RAISED LIKE YESTURDAY. PILLOWCASES BETWEEN FOLDS UNDER BREAST AND STOMACH. PT ASKS ABOUT GETTING SOMETHING TO HELP HER SLEEP. I TOLD PT I WILL CALL IF SHE IS NOT ABLE TO GET SLEEP TONIGHT. IF SHE IS ABLE TO SLEEP I WILL PASS IN REPORT TO ORDER SOMETHING DURING THE DAY OR CALL IN THE MORNING BEFORE I LEAVE. NO S/S OF DISTRESS WILL CONTINUE TO MONITOR
[2016-12-23] VITALS (7 sets, daily range): BP systolic 122–158; BP diastolic 50–76
--- NOTE | 2016-12-23 01:36 | NUR ---
PT IN BED SLEEPING FOR APPROX A HOUR AND A HALF. RESPIRATIONS ARE EVEN AND UNLABORED. NO S/S OF DISTRESS. BED IS LOW AND CALL LIGHT WITHIN REACH. SINK LIGHT IS ON. WILL CONTINUE TO MONITOR
--- NOTE | 2016-12-23 02:32 | NUR ---
PT AWAKE SITTING ON SIDE OF BED ASKING TO GET INTO CHAIR. BED HURTS HER BACK. PT ASSISTED TO CHAIR. VERBALIZED EXCITEMENT ABOUT GETTING A FEW HOURS OF SLEEP. NOURISHMENT OFFERED AND CALLIGHT WITHIN REACH. NO OTHER NEEDS. NO S/S OF DISTRESS. I WILL BE PASSING IN REPORT NEED FOR SLEEPING MEDICATION.
[2016-12-23 05:00] LABS: BASOPHILS 0.5 % (0-2); HEMATOCRIT 35.5 % (36.0-48.0); HEMOGLOBIN 11.6 g/dL (12-16); IMMATURE GRANULOCYTES 0.7 % (0-5); LYMPHOCYTES 20.9 % (15-50); MCH 28.9 pg (26.0-34.0); MCHC 32.7 g/dL (31.0-37.0); MCV 88.5 fL (80.0-100.0); MEAN PLATELET VOLUME 9.3 fL (7.4-10.4); MONOCYTES 6.3 % (2-11); NEUTROPHILS 67.6 % (40-80); PLATELET COUNT 467 10x3/uL (130-400); RBC 4.01 10x6/uL (4.00-5.40); RDW 15.1 % (11.5-14.5); WBC 11.5 10x3/uL (4.8-10.8)
[2016-12-23 05:15] LABS: ANION GAP 12.3 mmol/L (8-16); CALCIUM 9.1 mg/dL (8.5-10.1); CARBON DIOXIDE 29.4 mmol/L (21.0-32.0); CREATININE - SERUM 1.5 mg/dL (0.6-1.3); POTASSIUM - SERUM 3.7 mmol/L (3.5-5.1)
--- NOTE | 2016-12-23 07:06 | NUR ---
PT UP IN CHAIR. SHE DENIES ANY NEEDS. NOURISHMENT OFFERED. CALLIGHT WITHIN REACH. NO S/S OF DISTRESS WILL CONTINUE TO MONITOR
--- NOTE | 2016-12-23 07:50 | NUR ---
FSBS 296. PT REC'D 16 UNITS OF SS INSULIN ALONG WITH HER LANTUS LONG ACTING. PT SITTING UP IN BEDSIDE CHAIR RESTING QUIETLY AND STATES SHE IS COMFORTABLE. MAVERICK HAS ORDER TO BE D/C. STUDENT NURSE IN ROOM WITH INSTRUCTOR AND REMOVED WITH CATH BULB FULLY INTACT. PT VERBALIZED UNDERSTANDING TO CALL FOR ASSISTANCE TO BR WHEN NEEDING. CL IN REACH. WILL CTM.
--- NOTE | 2016-12-23 12:18 | NUR ---
FSBS 304. PT REC'D 20 UNITS OF HER SS INSULIN. PT SITTING UP IN BEDSIDE CHAIR RESTING COMFORTABLY WATCHING TV AND EATING LUNCH. DENIES ANY CURRENT PAIN OR NEEDS. CL IN REACH. WILL CPOC.
--- NOTE | 2016-12-23 12:34 | NUR ---
Nutrition Follow Up: Pt is eating 89% meal avg on a diabetic diet. +BM 12/21/16. Meds reviewed. Labs noted - Glucose continues elevated. Rec continue current diet. RD following.
--- NOTE | 2016-12-23 13:39 | NUR ---
[facility]: Notified of patient. This patient has no OPHD needs. SOPHIE WILSON.
--- NOTE | 2016-12-23 16:30 | NUR ---
FSBS 337 20 UNITS OF SS INSULIN GIVEN. PT SITTING UP IN BEDSIDE CHAIR RESTING QUIETLY WITH AT BEDSIDE. PT C/O BILAT LEG PAIN AND WAS PROVIDED WITH HER TRAMADOL REQUESTED. PT C/O HER ITCHING ALL OVER AND WANTS BENADRYL, HOWEVER ITS ONLY SCHEDULED FOR AT NIGHT, WILL CALL DOCTOR AND SEE IF WE CAN GET A TOPICAL CREAM INSTEAD. NO FURTHER NEEDS AT THIS TIME. CL IN REACH. WILL CPOC.
--- NOTE | 2016-12-23 17:10 | NUR ---
Patient Name: BRIGIDA ROBBINS Encounter No: [id number] : 1960 Primary Insurance: MEDICAID [facility] [place] Date: 12-24-2016 Planned Disposition: Home Health Service External Planned Provider: [facility]ESH[facility] DCP follow-up note: CM RECEIVED HOME HEALTH CARE ORDER, ATTEMPTED TO MEET WITH PT AND FAMILY THREE TIMES THROUGHOUT THE DAY, PT ADVISED HER FAMILY WILL BE HERE IN THE EVENING. CM MET WITH PT AND SON IN ROOM AT ABOUT 1615 HOURS, DISCUSSED DISCHARGE NEEDS AND ANTICIPATED DISCHARGE TOMORROW. PT REPORTS SHE WANTS TO GO HOME, SON REPORTS HE WILL TAKE PT HOME AT DISCHARGE. THEY WANT HOME HEALTH WITH THE [facility] [place]. CHOICE SIGNED. IMPORTANT MESSAGE FROM MEDICARE PROVIDED AND EXPLAINED. PT AND SON DENIED FURTHER NEEDS. CM CALLED [facility], , RECEIVED ANSWERING SERVICE. CM FAXED REFERRAL TO [facility] AT [phone]. CM TO CALL [facility] IN THE MORNING TO DISCUSS REFERRAL AND INSURE THEY CAN ACCEPT PT FOR HOME HEALTH SERVICES. FOR DISCHARGE, CM TO CALL [facility], , FAX DISCHARGE INFORMATION TO [facility] AT [phone]. Alfredo Reina, CASE MANAGEMENT
--- NOTE | 2016-12-23 19:38 | NUR ---
ALERT/AWAKE SITTING IN CHAIR. C/O ITCHING RASH, REQUESTING BENADRY. IV IN RT FA INTACT SL. SWELLING OF BOTH LEGS NOTED. PRESENT IN ROOM.
--- NOTE | 2016-12-23 22:28 | NUR ---
ADMIN SCHED MEDS AND HUMULIN R 24 UNITS; LANTUS 42 UNITS FOR BS 370. REQUESTED TRAMADOL FOR BACK/LEG PAIN LEVEL 8 ON NUMBER SCALE. NO OTHER NEEDS VOICED.
[2016-12-24 04:00] VITALS: BP 131/72
--- NOTE | 2016-12-24 06:10 | NUR ---
SITTING IN CHAIR. ADMIN MEDS AND INSULINS FOR BS 211. DENIES ANY NEEDS. HER IS PRESENT IN ROOM.
[2016-12-24 06:17] LABS: BASOPHILS 0.4 % (0-2); EOSINOPHILS 4.7 % (0-7); HEMATOCRIT 35.4 % (36.0-48.0); HEMOGLOBIN 11.7 g/dL (12-16); IMMATURE GRANULOCYTES 0.6 % (0-5); LYMPHOCYTES 28.7 % (15-50); MCHC 33.1 g/dL (31.0-37.0); MCV 87.8 fL (80.0-100.0); MEAN PLATELET VOLUME 9.3 fL (7.4-10.4); MONOCYTES 7.4 % (2-11); NEUTROPHILS 58.2 % (40-80); PLATELET COUNT 477 10x3/uL (130-400); RBC 4.03 10x6/uL (4.00-5.40); RDW 15.2 % (11.5-14.5); WBC 11.6 10x3/uL (4.8-10.8)
[2016-12-24 06:26] LABS: ANION GAP 12.3 mmol/L (8-16); CALCIUM 9.1 mg/dL (8.5-10.1); CARBON DIOXIDE 30.6 mmol/L (21.0-32.0); CREATININE - SERUM 1.4 mg/dL (0.6-1.3); POTASSIUM - SERUM 3.9 mmol/L (3.5-5.1)
--- NOTE | 2016-12-24 07:30 | NUR ---
AM ROUNDS - PT RESTING QUIETLY, UP TO CHAIR. FAMILY AT [place]. EXPLAINED PLAN FOR DAY AND POSSIBLE DISCHARGE. RR EVEN AND UNLABORED , PT DENIES NEEDS AT THIS TIME. ROOM FREE FROM CLUTTER, FALL SOCKS ON PT, WILL CTM.
[2016-12-24 08:36] VITALS: BP 157/75
--- NOTE | 2016-12-24 08:45 | NUR ---
NYSTATIN POWDER AND CREAM APPLIED UNDER ABDOMINAL FOLDS AROUND GROIN AREA BILATERALLY. CLEANSED WITH COOL WATER PRIOR TO APPLYING. PILLOW CASES PLACED UNDERNEATH FOLDS TO PROVIDE BARRIER BETWEEN SKIN FOLDS.
[2016-12-24] MEDS ORDERED: NORCO 7.5/325 T1 TA1 PO (09:50)
[2016-12-24] MEDS ORDERED: DOXYCYCLINE HY100 M2 PO (09:50)
--- NOTE | 2016-12-24 10:59 | NUR ---
Patient Name: BRIGIDA ROBBINS Encounter No: [id number] : 1960 Primary Insurance: MEDICAID [facility] [place] Date: 12-24-2016 Planned Disposition: Home Health Service External Planned Provider: [facility] DCP follow-up note: CM CALLED [facility], , PROVIDED REFERRAL TO [facility], FAXED DISCHARGE INFORMATION TO [facility] AT [phone]. PT NOTIFIED, NO FURTHER NEEDS IDENTIFIED. FAMILY TO TRANSPORT HOME. Alfredo Reina, CASE MANAGEMENT
--- NOTE | 2016-12-24 11:01 | NUR ---
PT DISCHARGED. REMOVED IV FROM RIGHT FA WITH CATHETER TIP INTACT, BANDAGE APPLIED. BARREL BRANDER REMOVED AND RETURNED TO COREMAKER MACHINE. PROVIDED D/C INSTRUCTIONS AND FAMILY AND PT VERBALZIED UNDERSTANDING. PT WILL BE GOING HOME WITH FAMILY MEMBER IN PERSONAL VEHICLE BACK TO [place]. PT WILL BE RECIEVING HOME HEALTH. FAMILY WILL CALL WHEN READY TO GO, WILL CALL FOR TRANSFER VIA WHEELCHAIR.
== END 2016-12-24 11:29 | disposition home health service (06) | DRG 603 ==
LOC: D.ER 15:11 → D.M2 20:00
PROVIDERS: Emergency Medicine; Internal Medicine Nephrology; Physician Assistant; ADMIT Internal Medicine Nephrology
PROC: 0T9B70Z Drainage of Bladder with Drainage Device, Via Natural or Artificial Opening (ICD-10-PCS; principal; 2016-12-13)
DX: L03.116 Cellulitis of left lower limb (principal); N39.0 Urinary tract infection, site not specified; Z68.44 Body mass index [BMI] 60.0-69.9, adult; B96.20 Unspecified Escherichia coli [E. coli] as the cause of diseases classified elsewhere; E11.43 Type 2 diabetes mellitus with diabetic autonomic (poly)neuropathy; K31.84 Gastroparesis; E11.40 Type 2 diabetes mellitus with diabetic neuropathy, unspecified; E66.01 Morbid (severe) obesity due to excess calories; E78.5 Hyperlipidemia, unspecified; R41.0 Disorientation, unspecified; E03.9 Hypothyroidism, unspecified; I25.10 Atherosclerotic heart disease of native coronary artery without angina pectoris; Z95.5 Presence of coronary angioplasty implant and graft; G47.33 Obstructive sleep apnea (adult) (pediatric); I10 Essential (primary) hypertension; E87.6 Hypokalemia; L25.8 Unspecified contact dermatitis due to other agents; T36.8X5A Adverse effect of other systemic antibiotics, initial encounter; B95.61 Methicillin susceptible Staphylococcus aureus infection as the cause of diseases classified elsewhere

== ENCOUNTER → 2017-01-13 15:08 | Outpatient (CLI) | payer MEDICAID ==
[2016-12-11 15:03] VITALS: BMI 60.7
[~2017-01-13 15:08] MED LIST: ALDACTONE25 MG PO; BUMEX2 MG PO; CATAPRES0.2 MG PO; DOXYCYCLINE HY100 M2 PO; HUMULIN N100 U/ML SC; HUMULIN R100 U/ML SC; HYDROCODONE-APA1 TAB PO; ISOSORBIDE MONO20 MG PO; MAG-OX 400 MG400 MG PO; METOLAZONE5 MG PO; NORCO 7.5/325 T1 TA1 PO; NORTRIPTYLINE H50 MG PO; NORVASC5 MG PO; PLAVIX75 MG PO; POTASSIUM CHLORIDE; SYNTHROID300 MCG PO; [UNRECOGNIZED DRUG - OTHER]
== END | disposition home or self-care (01) ==
LOC: D.LABREF 15:08
DX: I87.319 Chronic venous hypertension (idiopathic) with ulcer of unspecified lower extremity (principal)